=== PATIENT | male | born 2000 | race Caucasian/White ===

== ENCOUNTER 2022-03-22 18:15 | Emergency (ER) | payer OTHER ==
[~2022-03-22] VITALS: Ht 182 cm; Wt 72.0 kg
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
[2022-03-22] MEDS ORDERED: LACTATED RINGERS 1,000 ML IV ONE (18:30)
[2022-03-22 18:35] LABS: BASOPHILS # (AUTO) 0.1 10^3/uL (0.0-0.1); BASOPHILS % (AUTO) 1 % (0-10); EOSINOPHILS # (AUTO) 1.6 10^3/uL (0.0-0.3); EOSINOPHILS % (AUTO) 9 % (0-10); HEMATOCRIT 48 % (40-54); HEMOGLOBIN 16.1 g/dL (13.3-17.7); LYMPHOCYTES # (AUTO) 5.6 10^3/uL (1.0-4.0); LYMPHOCYTES % (AUTO) 30 % (12-44); MEAN CORPUSCULAR HEMOGLOBIN 31 pg (25-34); MEAN CORPUSCULAR HGB CONC 34 g/dL (32-36); MEAN CORPUSCULAR VOLUME 93 fL (80-99); MEAN PLATELET VOLUME 10.2 fL (9.0-12.2); MONOCYTES # (AUTO) 1.4 10^3/uL (0.0-1.0); MONOCYTES % (AUTO) 8 % (0-12); NEUTROPHILS # (AUTO) 9.6 10^3/uL (1.8-7.8); NEUTROPHILS % (AUTO) 52 % (42-75); PLATELET COUNT 308 10^3/uL (130-400); WHITE BLOOD COUNT 18.4 10^3/uL (4.3-11.0)
[2022-03-22 18:43] LABS: ALBUMIN 4.8 GM/DL (3.2-4.5); CHLORIDE 102 MMOL/L (98-107); POTASSIUM 3.5 MMOL/L (3.6-5.0); SODIUM 141 MMOL/L (135-145)
[2022-03-22 18:44] LABS: CALCIUM 9.9 MG/DL (8.5-10.1)
[2022-03-22 18:45] LABS: GLUCOSE 156 MG/DL (70-105)
[2022-03-22 18:46] LABS: CARBON DIOXIDE 14 MMOL/L (21-32)
[2022-03-22 18:47] LABS: BILIRUBIN,TOTAL 0.9 MG/DL (0.1-1.0)
[2022-03-22 18:48] LABS: ALKALINE PHOSPHATASE 80 U/L (40-136)
[2022-03-22 18:49] LABS: CREATININE SERUM 1.25 MG/DL (0.60-1.30); GFR ESTIMATED 85
[2022-03-22 18:50] LABS: BUN/CREATININE RATIO 7; EOSINOPHILS % (MANUAL) 8 %; LYMPHOCYTES % (MANUAL) 30 %; MONOCYTES % (MANUAL) 7 %; NEUTROPHILS % (MANUAL) 51 %; RBC MORPH NORMAL; REACTIVE LYMPHOCYTES 4 %
[2022-03-22 18:51] LABS: MAGNESIUM 2.3 MG/DL (1.6-2.4)
[2022-03-22 18:52] LABS: ALANINE AMINOTRANSFERASE 14 U/L (0-55); CREATINE KINASE 371 U/L (30-200)
[2022-03-22 19:00] LABS: CREATINE KINASE MB 2.2 NG/ML (<6.6)
[2022-03-22 19:13] LABS: TSH (THYROID ANALYZER) 0.83 UIU/ML (0.35-4.94)
[2022-03-22 19:22] LABS: BILIRUBIN,URINE NEGATIVE (NEGATIVE); CLARITY,URINE CLEAR; COLOR,URINE YELLOW; GLUCOSE, URINE (UA) NEGATIVE (NEGATIVE); KETONES,URINE NEGATIVE (NEGATIVE); LEUKOCYTE ESTERASE ,URINE NEGATIVE (NEGATIVE); NITRITE,URINE NEGATIVE (NEGATIVE); PROTEIN,URINE NEGATIVE (NEGATIVE)
--- NOTE | 2022-03-22 19:30 | Diagnostic Imaging Report ---
INDICATION: Syncope and possible seizure. TECHNIQUE: Multiple contiguous axial images were obtained through the brain without the use of intravenous contrast. Auto Exposure Controls were utilized during the CT exam to meet ALARA standards for radiation dose reduction. COMPARISON: There is no prior study for comparison. FINDINGS: There are no extra-axial fluid collections. No acute intercranial hemorrhage. No mass effect or midline shift. The ventricles are normal in size and position. There is a focal low-density area in the cortex near the left frontoparietal junction. This may represent developmental anomaly or old infarct. There are no other focal parenchymal abnormalities in the brain. Calvarial windows show some irregular lucencies with some thinning of the superior calvarium which is likely also a developmental abnormality. The sinuses are well aerated. Orbital contents are unremarkable. There are chronic changes in the nasal bones anteriorly. IMPRESSION: CT brain shows no acute hemorrhage or mass effect or definite acute finding. There is a small low-density area in the cortex of the left frontoparietal junction which may be developmental anomaly or old infarct. MRI may be helpful for further characterization. There are chronic changes in the bony calvarium which are likely developmental as well. Dictated by: Dictated on workstation # [id number]
[2022-03-22 19:32] LABS: BACTERIA,URINE NEGATIVE /HPF; RBC,URINE 0-2 /HPF; URINE OTHER FEW SPERM /HPF
[2022-03-22 19:33] LABS: AMPHETAMINE SCREEN, URINE NEGATIVE (NEGATIVE); BARBITURATE SCREEN URINE NEGATIVE (NEGATIVE); BENZODIAZEPINES SCREEN URINE NEGATIVE (NEGATIVE); CANNABINOID SCREEN, URINE POSITIVE (NEGATIVE); COCAINE SCREEN URINE NEGATIVE (NEGATIVE); METHADONE STAT NEGATIVE (NEGATIVE); OPIATE SCREEN URINE NEGATIVE (NEGATIVE); OXYCODONE STAT NEGATIVE (NEGATIVE); PROPOXYPHENE STAT NEGATIVE (NEGATIVE); TRICYCLIC ANTIDEPRESSANTS SCRE NEGATIVE (NEGATIVE)
[2022-03-22 20:15] VITALS: BP 126/74
== END 2022-03-22 20:20 | disposition home or self-care (01) ==
LOC: ER 18:20
DX: T67.5XXA Heat exhaustion, unspecified, initial encounter (principal); F12.10 Cannabis abuse, uncomplicated; Z20.822 Contact with and (suspected) exposure to COVID-19; X30.XXXA Exposure to excessive natural heat, initial encounter
CPT/HCPCS: 70450; 80053; 80306; 81000; 82550; 82553; 83735; 83874; 84443; 85007; 85027; 87636; 93041; G0480; 36415; 80320; 93005